=== PATIENT | male | born 1960 ===

== ENCOUNTER 2018-04-26 12:30 | Inpatient (IN) | payer OTHER ==
[~2018-04-26] VITALS: Ht 177.8 cm; Wt 90.7 kg
[2018-04-26] MEDS ORDERED: GABAPENTIN600 MG PO (13:38)
[2018-04-26] MEDS ORDERED: CATAFLAN PO (13:38)
[2018-04-26] MEDS ORDERED: TAMS0.4C PO (13:39)
[2018-04-26] MEDS ORDERED: ZOCOR20 MG PO (13:39)
[2018-05-11] MEDS ORDERED: DOCUSATE SODIU100 MG PO (10:35)
[2018-05-11] MEDS ORDERED: GABAPENTIN800 MG PO (10:35)
[2018-05-11] MEDS ORDERED: AMOX-CLAV 875-1 EACH PO (10:36)
[2018-05-11] MEDS ORDERED: CLONAZEPAM1 MG PO (10:37)
[2018-05-11] MEDS ORDERED: PERCOCET 5-3251 EACH PO (10:37)
== END 2018-05-11 12:49 | disposition home or self-care (01) | DRG 460 ==
LOC: PED 05-10 05:30 → O/R 05-10 05:30 → SURG 05-10 12:30 → PED 05-10 15:53
PROVIDERS: Orthopaedic Surgery Orthopaedic Surgery of the Spine
PROC: 0ST40ZZ Resection of Lumbosacral Disc, Open Approach (ICD-10-PCS; 2018-05-10)
PROC: 00NY0ZZ Release Lumbar Spinal Cord, Open Approach (ICD-10-PCS; 2018-05-10)
PROC: 07DS3ZZ Extraction of Vertebral Bone Marrow, Percutaneous Approach (ICD-10-PCS; 2018-05-10)
PROC: 0SG30AJ Fusion of Lumbosacral Joint with Interbody Fusion Device, Posterior Approach, Anterior Column, Open Approach (ICD-10-PCS; principal; 2018-05-10 12:30)
DX: M51.17 Intervertebral disc disorders with radiculopathy, lumbosacral region (principal); M47.27 Other spondylosis with radiculopathy, lumbosacral region